=== PATIENT | male | born 1985 | race Caucasian/White ===

== ENCOUNTER 2018-10-07 22:13 | Emergency (ER) | payer BC ==
[2018-10-07] MEDS ORDERED: Diphtheria,Pertussis(Acell),Tetanus Vaccine 0.5 ML Syringe IM ONE (22:38)
[2018-10-07] MEDS ORDERED: Bacitracin Oint 1 GM U/D Packet TOP ONE (22:38)
--- NOTE | 2018-10-07 22:44 | EDM.PDOC ---
ED HPI GENERAL MEDICAL PROBLEM - General Chief Complaint: Laceration Stated Complaint: PT HAS CUT ON FINGER Time Seen by Provider: 10/07/18 22:23 - History of Present Illness INITIAL COMMENTS - FREE TEXT/NARRATIVE: HISTORY AND PHYSICAL: History of present illness: The patient is a 33-year-old male who is unsure of his last tetanus shot and presents after cutting his left index finger with a small pocket knife. The patient says that he is ambidextrous and he was in his usual state of good health this evening before this occurred. He says he has no complaints of any pain at the finger but he was concerned it might need stitches. He has no other injuries and no other systemic complaints Review of systems: As per history of present illness and below otherwise all systems reviewed and negative. Past medical history: As per history of present illness and as reviewed below otherwise noncontributory. Surgical history: As per history of present illness and as reviewed below otherwise noncontributory. Social history: No reported history of drug or alcohol abuse. Family history: As per history of present illness and as reviewed below otherwise noncontributory. Physical exam: HEENT: Atraumatic, normocephalic, negative for conjunctival pallor or scleral icterus, mucous membranes moist, throat clear, neck supple, nontender, trachea midline. Lungs: Clear to auscultation, breath sounds equal bilaterally, chest nontender. Heart: S1S2, regular rate and rhythm no overt murmurs Abdomen: Deferred Pelvis: Deferred Genitourinary: Deferred. Rectal: Deferred. Extremities: Atraumatic, and full range of motion of all extremities with the exception of the left index finger where there is a superficial laceration seen on the radial aspect of the middle phalanx extending to the DIP area. It measures 1.5 x 1.0 cm and is in a curvilinear shape this region. There is no active bleeding and the patient can flex and extend against resistance. Cap refill and neurovascular is intact distally and there are no other injuries lesions or lacerations seen on the other digits or the hand on the left.. Neurovascular unremarkable. Neuro: Awake, alert, oriented. Cranial nerves II through XII unremarkable. Cerebellum unremarkable. Motor and sensory unremarkable throughout. Exam nonfocal. Diagnostics: [] Therapeutics: Tdap, wound irrigation tube gauze and bacitracin I discussed with the patient that the wound is not deep enough for suturing and have offered Steri-Strips but he says that he is going to be actively using his finger tomorrow work and I do not think that they will stay on. We will go with just local wound care bacitracin and tube gauze he says that this will work much better. Impression: Superficial left index finger laceration Definitive disposition and diagnosis as appropriate pending reevaluation and review of above. left pointer finger Pain Score (Numeric/FACES): 1 - Related Data Allergies Allergy/AdvReac Type Severity Reaction Status Date / Time No Known Allergies Allergy Verified 10/07/18 22:29 Home Meds: Home Meds Multivitamin [Multi-Vitamin Daily] 1 tab PO DAILY 10/07/18 [History] levETIRAcetam [Levetiracetam] 750 mg PO BID 10/07/18 [History] Past Medical History Neurological History: Reports: Seizure Social & Family History - Family History Family Medical History: Noncontributory - Tobacco Use Smoking Status *Q: Current Every Day Smoker Years of Tobacco use: 7 Packs/Tins Daily: 1 - Recreational Drug Use Recreational Drug Use: No ED ROS GENERAL - Review of Systems Review Of Systems: ROS reveals no pertinent complaints other than HPI. ED EXAM, SKIN/RASH Exam: See Below (See dictation) Course - Vital Signs Last Recorded V/S: Last Vital Signs Temp 35.9 C 10/07/18 22:31 Pulse 60 10/07/18 22:31 Resp 18 10/07/18 22:31 BP 133/80 10/07/18 22:31 Pulse Ox 98 10/07/18 22:31 - Orders/Labs/Meds Orders: Active Orders 24 hr Category Date Time Status Communication Order [RC] STAT Care 10/07/18 22:38 Ordered Vaccines to be Administered [RC] PER UNIT ROUTINE Care 10/07/18 22:39 Ordered Meds: Medications Discontinued Medications Generic Name Dose Route Start Last Admin Trade Name Freq PRN Reason Stop Dose Admin Bacitracin 1 dose 10/07/18 22:38 Bacitracin Oint 1 Gm TOP 10/07/18 22:39 ONETIME ONE Diphtheria/Tetanus/Acell Pertussis 0.5 ml 10/07/18 22:38 Adacel IM 10/07/18 22:39 .ONCE ONE Departure - Departure Time of Disposition: 22:43 Disposition: Home, Self-Care 01 Condition: Good Clinical Impression: Laceration of left index finger Qualifiers: Encounter type: initial encounter Damage to nail status: without damage Foreign body presence: without foreign body Qualified Code(s): S61.211A - Laceration without foreign body of left index finger without damage to nail, initial encounter - Discharge Information Referrals: PCP,None [Primary Care Provider] - Additional Instructions: The following information is given to patients seen in the emergency department who are being discharged to home. This information is to outline your options for follow-up care. We provide all patients seen in our emergency department with a follow-up referral. The need for follow-up, as well as the timing and circumstances, are variable depending upon the specifics of your emergency department visit. If you don't have a primary care physician on staff, we will provide you with a referral. We always advise you to contact your personal physician following an emergency department visit to inform them of the circumstance of the visit and for follow-up with them and/or the need for any referrals to a consulting specialist. The emergency department will also refer you to a specialist when appropriate. This referral assures that you have the opportunity for followup care with a specialist. All of these measure are taken in an effort to provide you with optimal care, which includes your followup. Under all circumstances we always encourage you to contact your private physician who remains a resource for coordinating your care. When calling for followup care, please make the office aware that this follow-up is from your recent emergency room visit. If for any reason you are refused follow-up, please contact the [facility] emergency department at and ask to speak to the emergency department charge nurse. [facility]- [place] [address] Keep the wound clean dry cleansing with mild soap and water patting it dry and applying bacitracin or Neosporin and a nonocclusive dressing twice a day. Please try to keep the area as dry as possible and do not use Band-Aids. Return to ER as needed and as discussed - My Orders Last 24 Hours: My Active Orders 10/07/18 22:38 Communication Order [RC] STAT 10/07/18 22:39 Vaccines to be Administered [RC] PER UNIT ROUTINE - Assessment/Plan Last 24 Hours: My Active Orders 10/07/18 22:38 Communication Order [RC] STAT 10/07/18 22:39 Vaccines to be Administered [RC] PER UNIT ROUTINE
== END 2018-10-07 23:15 | disposition home or self-care (01) ==
LOC: MW.ED 22:13
DX: S61.211A Laceration without foreign body of left index finger without damage to nail, initial encounter (principal); F17.210 Nicotine dependence, cigarettes, uncomplicated; Z23 Encounter for immunization; W26.0XXA Contact with knife, initial encounter
CPT/HCPCS: 90471; 90715; 99282